=== PATIENT | male | born 1935 | race Caucasian/White ===

== ENCOUNTER → 2018-11-24 12:03 | Day surgery (SDC) | payer MEDICARE ==
[~2018-11-24 12:03] MED LIST: Buffered Lidocaine 1% SYRIN* 1 ML/SYRINGE INTRADERM ONE; Bupivacaine 0.25% SDV PF* 10 ML VIAL INJ ONE; Lactated Ringers 1000 ML Bag* 1,000 ML IV SCH; Lidocaine 1% w EPI 1:100,000* 30 ML VIAL ONE; Lidocaine 2% PF * 5 ML VIAL ONE; Midazolam* 1 MG/ML 2 ML VIAL (2 MG) ONE; Naloxone* 0.4 MG/ML 1 ML VIAL IV PRN; Propofol* 10 MG/ML 20 ML BTL ONE; ceFAZolin 2 GM in NS PREMIX(*) 2 GM/100 ML BAG IVPB ONE; fentaNYL* 50 MCG/ML 2 ML VIAL (100 MCG VIAL) ONE
[2018-11-24 15:39] VITALS: BP 119/68
== END | disposition home or self-care (01) ==
LOC: OR 12:03
PROVIDERS: ATTEND Plastic Surgery
DX: D03.59 Melanoma in situ of other part of trunk (principal); I25.10 Atherosclerotic heart disease of native coronary artery without angina pectoris; G47.33 Obstructive sleep apnea (adult) (pediatric); Z95.0 Presence of cardiac pacemaker; I49.5 Sick sinus syndrome; Z95.1 Presence of aortocoronary bypass graft
CPT/HCPCS: 88305; J0690; J2250; J2704; J3010; J3490